=== PATIENT | male | born 1970 | race Caucasian/White ===

== ENCOUNTER 2019-08-04 01:42 | Emergency (ER) | payer SELFPAY ==
[~2019-08-04] VITALS: Ht 177.8 cm; Wt 97.5 kg
--- NOTE | 2019-08-04 01:46 | NUR ---
PATIENT AMB WITH CRUTCHES TO BED 4
[2019-08-04 01:51] VITALS: BP 174/114
--- NOTE | 2019-08-04 01:55 | NUR ---
ASSESSMENT COMPLETED. SEE ASSESSMENT. PATIENT SITTING UP IN BED. AT BEDSIDE. BED IN LOW LOCKED POSITION WITH SIDE RAILS UP X1. NO NEEDS STATED AT THIS TIME. ERMD AWARE OF STATUS.
--- NOTE | 2019-08-04 02:45 | NUR ---
Patient discharged with v/s stable. Written and verbal after care instructions given and explained. Patient verbalized understanding. Ambulatory with steady gait. All questions addressed prior to discharge. Advised to follow up with PMD. Refuesed to have vital signs taken. Addendum: 08/04/19 at 0418 by TAMAR amb with steady gait using crutches.
== END 2019-08-04 02:45 | disposition home or self-care (01) ==
LOC: MED 01:42
DX: S82.832A Other fracture of upper and lower end of left fibula, initial encounter for closed fracture (principal); F17.210 Nicotine dependence, cigarettes, uncomplicated; X58.XXXA Exposure to other specified factors, initial encounter; Y93.89 Activity, other specified; Y92.89 Other specified places as the place of occurrence of the external cause; Y99.8 Other external cause status
CPT/HCPCS: 99281